=== PATIENT | male | born 1985 | race Caucasian/White ===

== ENCOUNTER 2016-06-10 23:50 | Emergency (ER) | payer MEDICAID ==
[~2016-06-10] VITALS: Ht 162.6 cm; Wt 91.5 kg
[~2016-06-10 23:50] MED LIST: AMOX1TAB67 PO; BACTDS PO; CEPH-443 PO; HYDR-3498 PO; LORA1TAB54 PO; PEN500 PO
[2016-06-10 23:53] VITALS: Ht 162.6 cm; Wt 91.5 kg
[2016-06-11] MEDS ORDERED: KETOROLAC 30 MG INJ IM STA (01:40)
[2016-06-11] MEDS ORDERED: HYDR-906 PO (01:56)
[2016-06-11] MEDS ORDERED: NAPR-260 PO (01:56)
--- NOTE | 2016-06-11 02:02 | ERD ---
ER Documentation Chief Complaint Date/Time DATE: 06/11/16 TIME: 01:57 Chief Complaint non traumatic right knee pain x 1 week HPI This a 31-year-old male who presents the emergency department today complaining of right knee pain for the past week. 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 States he is taking Tylenol, ibuprofen and tramadol for the pain with limited improvement. States he has pain with walking. Denies any fevers or chills. ROS All systems reviewed and are negative except as per history of present illness. Medications Home Meds Active Scripts Naproxen* (Naprosyn*) 500 Mg Tablet, 500 MG PO BID Y for PAIN AND/OR INFLAMMATION, #30 TAB Prov:JOSE J SMITH PA-C 06/11/16 Hydrocodone/Acetaminophen ([place]ade 5-325 Tablet) 1 Each Tablet, 1 TAB PO Q6H Y for PAIN, #15 TAB Prov:JOSE J SMITH PA-C 06/11/16 Loratadine/Pseudoephedrine* (Claritin-D* 12 Hr) 5-120 Mg Tab.er.12h, 1 TAB PO Q12, #10 TAB.SA Prov:ROBIN JOHNSON PA-C 05/12/15 Amoxicillin-Clavulanate K* (Augmentin*) 500 Mg Tab, 500 MG PO BID for 10 Days, TAB Prov:ROBIN JOHNSON-C 05/12/15 Penicillin V Potassium* (Penicillin V K*) 500 Mg Tab, 500 MG PO BID for 7 Days, TAB Prov:NAHOMI SALEEM 05/09/15 Cephalexin* (Keflex*) 500 Mg Capsule, 500 MG PO QID for 7 Days, CAP Prov:EMMA REYNA PA-C 08/05/14 Sulfamethoxazole-Trimethoprim* (Bactrim* DS) 800-160 Mg Tab, 1 TAB PO BID for 7 Days, TAB Prov:EMMA REYNA PA-C 08/05/14 Hydrocodone Bit-Acetaminophen* (Evening [place]ade*) 5-325 Mg Tab, 1 TAB PO Q6 Y for PAIN, # 15 TAB Prov:EMMA REYNA PA-C 08/05/14 Allergies Allergies: Coded Allergies: No Known Allergy (Unverified , 4/2/16) PMhx/Soc Medical and Surgical Hx: pt denies Medical Hx, pt denies Surgical Hx History of Surgery: No Anesthesia Reaction: No Hx Neurological Disorder: No Hx Respiratory Disorders: No Hx Cardiac Disorders: No Hx Psychiatric Problems: No Hx Miscellaneous Medical Probl: No Hx Alcohol Use: No Hx Substance Use: No Hx Tobacco Use: No Smoking Status: Never smoker Physical Exam Vitals Vital Signs Date Time Temp Pulse Resp B/P Pulse Ox O2 Delivery O2 Flow Rate FiO2 06/10/16 23:53 97.8 64 20 122/58 98 Physical Exam Const: No acute distress Head: Atraumatic Eyes: Normal Conjunctiva ENT: Normal External Ears, Nose and Mouth. Neck: Full range of motion..~ No meningismus. Resp: Clear to auscultation bilaterally Cardio: Regular rate and rhythm, no murmurs Skin: No petechiae or rashes MSK: Right knee with no obvious deformity, no effusion. No ecchymosis. Full active range of motion with crepitus moving from extension to flexion. Tenderness to palpation medial joint line. No erythema or warmth. Pulses 2+. Distal neurovascularly intact. Neur: Awake and alert Psych: Normal Mood and Affect Results 24 hrs Current Medications Medications (Trade) Dose Ordered Sig/Slava Route PRN Reason Start Time Stop Time Status Last Admin Dose Admin Ketorolac Tromethamine (Toradol) 30 mg ONCE STAT IM 06/11/16 01:40 06/11/16 01:42 DC 06/11/16 01:49 Procedures/MDM This is a 31-year-old male who presents the emergency department today complaining of nontraumatic knee pain for the past week. On physical exam patient has some tenderness along his medial joint line however he has had no trauma. Patient was having difficulty ambulating and therefore did offer to give the patient an x-ray however have explained to the patient that given that he has no trauma of low suspicion for acute fracture dislocation. There is no erythema or warmth and I have low suspicion for septic joint or gout. Do not feel the patient requires laboratory work. I have explained to the patient that he may benefit from further evaluation from a explosive ordnance disposal specialist and evaluation with an MRI. Patient did end up declining the x-ray at this time. His symptoms are most consistent with sprain versus patellofemoral syndrome versus meniscal injury or internal derangement of the knee. Patient was given Toradol injection here in the emergency department. He was given a knee immobilizer and crutches to help ambulate. Patient already tried tramadol at home and therefore did give him a short course of Evening Shade, Naprosyn for home. Patient was given a list of community resources and information for referral to explosive ordnance disposal specialist. At this time the patient is stable for discharge and outpatient management. Patient should follow up with their PCP in the next 1-2 days. They may return to the emergency department sooner for any persistent or worsening of symptoms. Patient understood and agreed with the plan. Departure Diagnosis: Primary Impression: Knee pain Laterality: right Chronicity: acute Qualified Code: M25.561 - Acute pain of right knee Condition: Fair Patient Instructions: Knee Pain, Uncertain Cause Referrals: [facility] Usted se nolan hecho un examen mdico de control que le indica que no est en monisha condicin que requiera tratamiento urgente en el Departamento de Emergencia. Un estudio ms profundo y el tratamiento de layton condicin pueden esperar sin ningn riesgo hasta que usted sea atendida/o en el consultorio de layton mdico o monisha cl daiana. Es responsabilidad suya arreglar monisha jeff para el seguimiento del christofer. MANEJO DE CONDICIONES NO URGENTES EN EL FUTURO 1) Si usted tiene un mdico de atencin primaria: Usted debera llamar a layton mdico de atencin primaria antes de venir al departamento de emergencia. Despus de las horas de consultorio, layton doctor o layton asociado/a est disponible por telfono. El mdico o enfermero de lamonte en el servicio telefnico puede asesorarle por tia medio para atender el problema, o christofer contrario se puede programar monisha jeff. 2) Si usted no tiene un mdico de atencin primaria: Llame al mdico o clnica de referencia que aparece abajo mike las horas de consultorio para hacer monisha jeff para que le vean. CLINICAS: [facility] [phone] [facility] [phone] [facility] [phone] [place] [phone] [place] [address] [phone] [place] [phone] [facility] Hours: Thu-Thu 9:00 AM - 5:00 PM Additional Instructions: Llame al doctor MAANA y jaja monisha JEFF PARA DENTRO DE 1-2 [place].Dgale a la secretaria que nosotros le instruimos hacer esta jeff.Avise o llame si layton condicin se empeora antes de la jeff. Regresa aqui si peor o no mejor. Follow-up on referral for explosive ordnance disposal specialist Take Evening Shade for severe pain otherwise take Naprosyn or Tylenol or Motrin Use knee immobilizer and crutches to help ambulate Apply ice to painful area JOSE J SMITH PA-C June 11, 2016 02:02
[2016-06-11 02:06] VITALS: BP 127/70; PULSE 71; RESP 17; TEMP 98.6
== END 2016-06-11 02:07 | disposition home or self-care (01) ==
LOC: FTE 23:50
DX: M25.561 Pain in right knee (principal)
CPT/HCPCS: 29505; J1885; 96372

== ENCOUNTER 2016-06-24 22:07 | Emergency (ER) | payer MEDICAID ==
[~2016-06-24] VITALS: Ht 162.6 cm; Wt 91.0 kg
[~2016-06-24 22:07] MED LIST changes: +HYDR-906 PO; +NAPR-260 PO
[2016-06-24 22:16] VITALS: Ht 162.6 cm; Wt 91.0 kg
[2016-06-24] MEDS ORDERED: HC1C30 TOP (23:19)
[2016-06-24] MEDS ORDERED: CEPH-443 PO (23:19)
[2016-06-24] MEDS ORDERED: PRED20TA PO (23:19)
[2016-06-24] MEDS ORDERED: BEN25 PO (23:19)
--- NOTE | 2016-06-24 23:23 | ERD ---
ER Documentation Chief Complaint Date/Time DATE: 06/24/16 TIME: 23:22 Chief Complaint right sided body rash w/ pain x 2 days HPI Is a 31-year-old male right-sided body rest with pain for 2 days. No fevers or chills. He says there is multiple discrete lesions. No fluctuance noted. No other current complaints. No known exposures. ROS All systems reviewed and are negative except as per history of present illness. Medications Home Meds Active Scripts Prednisone* (Prednisone*) 20 Mg Tab, 40 MG PO DAILY for 4 Days, TAB Prov:LIDIA BEACH S. 06/24/16 Cephalexin* (Keflex*) 500 Mg Capsule, 500 MG PO QID for 5 Days, CAP Prov:AMBERLIDIA FERGUSON S. 06/24/16 Hydrocortisone* Topical (Hydrocortisone* Topical) 1%-28.35 Gm Cream..g., 1 APPLIC TOP Q6 Y for ITCHING, #1 TUB Prov:LIDIA BEACH. 06/24/16 Diphenhydramine Hcl* (Benadryl*) 25 Mg Cap, 25 MG PO Q6 Y for ITCHING/RASH, #30 TAB Prov:DORIANLIDIA BALDERRAMA S. 06/24/16 Naproxen* (Naprosyn*) 500 Mg Tablet, 500 MG PO BID Y for PAIN AND/OR INFLAMMATION, #30 TAB Prov:JOSE J SMITH PA-C 06/11/16 Hydrocodone/Acetaminophen ([place] 5-325 Tablet) 1 Each Tablet, 1 TAB PO Q6H Y for PAIN, #15 TAB Prov:JOSE J SMITH PA-C 06/11/16 Loratadine/Pseudoephedrine* (Claritin-D* 12 Hr) 5-120 Mg Tab.er.12h, 1 TAB PO Q12, #10 TAB.SA Prov:ROBIN JOHNSON PA-C 05/12/15 Amoxicillin-Clavulanate K* (Augmentin*) 500 Mg Tab, 500 MG PO BID for 10 Days, TAB Prov:ROBIN JOHNSON PA-C 05/12/15 Penicillin V Potassium* (Penicillin V K*) 500 Mg Tab, 500 MG PO BID for 7 Days, TAB Prov:NAHOMI SALEEM 05/09/15 Cephalexin* (Keflex*) 500 Mg Capsule, 500 MG PO QID for 7 Days, CAP Prov:EMMA REYNA OZZY 08/05/14 Sulfamethoxazole-Trimethoprim* (Bactrim* DS) 800-160 Mg Tab, 1 TAB PO BID for 7 Days, TAB Prov:EMMA REYNA OZZY 08/05/14 Hydrocodone Bit-Acetaminophen* ([place]*) 5-325 Mg Tab, 1 TAB PO Q6 Y for PAIN, # 15 TAB Prov:EMMA REYNA OZZY 08/05/14 Allergies Allergies: Coded Allergies: No Known Allergy (Unverified , 05/12/15) PMhx/Soc Medical and Surgical Hx: pt denies Medical Hx, pt denies Surgical Hx History of Surgery: No Anesthesia Reaction: No Hx Neurological Disorder: No Hx Respiratory Disorders: No Hx Cardiac Disorders: No Hx Psychiatric Problems: No Hx Miscellaneous Medical Probl: No Hx Alcohol Use: No Hx Substance Use: No Hx Tobacco Use: No Smoking Status: Never smoker Physical Exam Vitals Vital Signs Date Time Temp Pulse Resp B/P Pulse Ox O2 Delivery O2 Flow Rate FiO2 06/24/16 22:16 98.3 80 20 115/60 98 Physical Exam Const: [] Head: Atraumatic Eyes: Normal Conjunctiva ENT: Normal External Ears, Nose and Mouth. Neck: Full range of motion..~ No meningismus. Resp: Clear to auscultation bilaterally Cardio: Regular rate and rhythm, no murmurs Abd: Soft, non tender, non distended. Normal bowel sounds Skin: Multiple punctate lesions with surrounding erythema induration about 1 cm each noted on the right flank right flank. Nonfluctuant. Back: No midline or flank tenderness Ext: No cyanosis, or edema Neur: Awake and alert Psych: Normal Mood and Affect Procedures/MDM Patient's dermatologic symptoms have stabilized while they have been evaluated in the department and are appropriate for outpatient work up. No evidence of Sukumar Sukhjinder's syndrome, Kawasaki's, or sepsis. Patient has evidence of insect bites that have developed cellulitis. Will be discharged home with Keflex, prednisone, Benadryl, hydrocortisone. Follow-up in 1 day for wound check. Follow-up with PCP tomorrow as well. Departure Diagnosis: Primary Impression: Rash Additional Impression: Infected insect bite Encounter type: initial encounter Qualified Code: W57.XXXA - Infected insect bite, initial encounter Condition: Stable Patient Instructions: Insect Sting/Bite, Infected LIDIA BEACH June 24, 2016 23:23
== END 2016-06-24 23:22 | disposition home or self-care (01) ==
LOC: E/R 22:07
DX: R21 Rash and other nonspecific skin eruption (principal); S30.861A Insect bite (nonvenomous) of abdominal wall, initial encounter; W57.XXXA Bitten or stung by nonvenomous insect and other nonvenomous arthropods, initial encounter; Y92.9 Unspecified place or not applicable

== ENCOUNTER 2017-08-14 17:21 | Emergency (ER) | END 2017-08-14 20:11 | disposition home or self-care (01) ==

== ENCOUNTER 2017-11-27 20:18 | Emergency (ER) | END 2017-11-27 23:29 | disposition home or self-care (01) ==